=== PATIENT | male | born 1965 | race Caucasian/White ===

== ENCOUNTER 2017-12-11 20:40 | Observation (INO) | payer BC ==
[~2017-12-11] VITALS: Ht 182.9 cm; Wt 90.3 kg
[2017-12-11 21:36] LABS: HEMATOCRIT 41.2 % (38.0-50.0); HEMOGLOBIN 13.9 G/DL (12.5-16.6); MCH 27.5 PG (29.0-34.0); MCHC 33.7 G/DL (30.0-36.0); MCV 81.6 FL (86-99); PLATELET COUNT 207 K/uL (156-360); RBC DIS.WIDTH-CV 13.2 % (11.8-14.6); RBC DIS.WIDTH-SD 39.3 % (39-53); RED BLOOD COUNT 5.05 M/uL (4.00-5.50); WHITE BLOOD COUNT 7.2 K/uL (4.1-10.2)
[2017-12-11 21:47] LABS: CHLORIDE 108 mEq/L (99-109); POTASSIUM 4.6 mEq/L (3.7-5.4); SODIUM 142 mEq/L (136-147)
[2017-12-11 21:49] LABS: GLUCOSE 86 mg/dL (70-99)
[2017-12-11 21:53] LABS: CREATININE 0.9 mg/dL (0.6-1.3); GFR ESTIMATE (CALCULATED) > 59 mL/min/ (58.99-99999)
[2017-12-11 21:54] LABS: UREA NITROGEN (BUN) 15 mg/dL (9-23)
[2017-12-11 21:57] LABS: TROP-I INTERPRETATION NEGATIVE; TROPONIN-I < 0.01 ng/mL (0.0-0.30)
[2017-12-12 02:55] LABS: BASOPHIL (%) 0.7 % (0-1); BASOPHIL COUNT 0.1 K/uL (0-0.1); EOSINOPHIL (%) 1.9 % (0-5); EOSINOPHIL COUNT 0.1 K/uL (0-0.3); IMMATURE GRANULOCYTE (%) 0.3 % (0.0-0.7); LYMPHOCYTE (%) 45.2 % (15-42); LYMPHOCYTE COUNT 3.3 K/uL (1.0-2.8); MONOCYTE (%) 8.4 % (3-12); MONOCYTE COUNT 0.6 K/uL (0-0.8); NEUTROPHIL (%) 43.5 % (45-76); NEUTROPHIL COUNT 3.2 K/uL (1.8-6.4)
[2017-12-12] MEDS ORDERED: LOPRESSOR25 MG PO (03:09)
[2017-12-12 03:55] VITALS: BP 131/92
[2017-12-12 04:46] LABS: TROP-I INTERPRETATION NEGATIVE; TROPONIN-I < 0.01 ng/mL (0.0-0.30)
[2017-12-12 10:12] VITALS: BP 133/87
[2017-12-12 11:28] LABS: TROP-I INTERPRETATION NEGATIVE; TROPONIN-I 0.02 ng/mL (0.0-0.30)
[2017-12-12 12:00] VITALS: BP 124/81
[2017-12-12 16:43] VITALS: BP 130/65
[2017-12-12] MEDS ORDERED: ASPIRIN81 M2 PO (17:34)
== END 2017-12-12 17:48 | disposition home or self-care (01) ==
LOC: EME 20:40 → EDOF 12-12 02:35 → ENRESERV 12-12 02:41 → 5WEST 12-12 03:43
PROVIDERS: Physician Assistant Medical
DX: R07.9 Chest pain, unspecified (principal); R00.2 Palpitations; R00.0 Tachycardia, unspecified; I35.8 Other nonrheumatic aortic valve disorders; Z95.3 Presence of xenogenic heart valve; M25.511 Pain in right shoulder
CPT/HCPCS: 71046; 71275; 80048; 84484; 85025; 85027; 93005; 99281; 99285; G0378